=== PATIENT | female | born 1995 | race Caucasian/White ===

== ENCOUNTER 2019-07-09 10:59 | Emergency (ER) | payer OTHER ==
[~2019-07-09] VITALS: Ht 160 cm; Wt 58.0 kg
[2019-07-09] MEDS ORDERED: IPRATROPIUM BROMIDE (0.02%) 0.5MG/2.5ML NEB HHN STA (11:43)
[2019-07-09] MEDS ORDERED: PREDNISONE 20MG TABLET PO STA (11:43)
[2019-07-09] MEDS ORDERED: ALBUTEROL (0.083%) 2.5MG/3ML NEB HHN STA (11:43)
[2019-07-09 13:13] VITALS: BP 138/85
== END 2019-07-09 13:15 | disposition home or self-care (01) ==
LOC: ER 10:59
DX: J45.901 Unspecified asthma with (acute) exacerbation (principal)
CPT/HCPCS: 94644; 99285; J7512; Z7610